=== PATIENT | male | born 1955 | race African-American/Black ===

== ENCOUNTER 2016-11-27 08:27 | Emergency (ER) | payer OTHER, MEDICAID ==
[~2016-11-27] VITALS: Ht 172.7 cm; Wt 80.0 kg
[~2016-11-27 08:27] MED LIST: ALLO100T PO; ATOR10TA69 PO; HYDR-4134 PO; LISI2.5T47 PO
[2016-11-27] MEDS ORDERED: SODIUM CHLORIDE 0.9% 1,000 ML IV ONE (09:10)
[2016-11-27 09:11] VITALS: BP 170/98
[2016-11-27 09:52] LABS: BASOPHILS % 0.7 % (0.0-2.0); EOSINOPHILS % 3.2 % (0.0-5.0); HEMATOCRIT. 40.9 % (42.0-52.0); LYMPHOCYTES % 16.6 % (20.0-50.0); MEAN CORPUSCULAR HEMOGLOBIN 29.7 pg (28.0-32.0); MEAN CORPUSCULAR VOLUME 86.9 fL (80.0-94.0); MEAN PLATELET VOLUME 8.3 fl (7.4-10.4); NEUTROPHILS % 72.5 % (40.0-76.0); PLATELET 222 x1000/uL (130-400); RED BLOOD CELL COUNT 4.71 mill/uL (4.7-6.1); RED CELL DISTRIBUTION WIDTH 13.1 % (11.6-14.6)
[2016-11-27 10:03] LABS: INR 1.1; PARTIAL THROMBOPLASTIN TIME 27.3 sec (23.4-31.0); PROTHROMBIN TIME 11.6 sec (9.4-11.6)
[2016-11-27 10:14] LABS: BETA HYDROXYBUTYRATE 0.4 mMol/L (0.0-0.3); CARBON DIOXIDE 22 mEq/L (21-32); CHLORIDE 108 mEq/L (98-107); TROPONIN I 0.06 ng/mL (0.00-0.04)
[2016-11-27] MEDS ORDERED: INSULIN REGULAR (HUMULIN R) 300UNITS/3ML IV ONE (10:30)
[2016-11-27] MEDS ORDERED: SODIUM CHLORIDE 0.9% 1,000 ML IV SCH (11:15)
[2016-11-27] MEDS ORDERED: DIPHENHYDRAMINE 50MG/ML VIAL IV PRN (11:15)
[2016-11-27] MEDS ORDERED: DEXTROSE 50% WATER 50ML SYRINGE IV PRN (11:15)
[2016-11-27] MEDS ORDERED: IPRATROPIUM/ALBUTEROL 0.5-3(2.5)MG/3ML NEB INH PRN ×2 (11:15)
[2016-11-27] MEDS ORDERED: ONDANSETRON HCL 4MG/2ML VIAL IV PRN (11:15)
[2016-11-27] MEDS ORDERED: LORAZEPAM 1MG TABLET PO PRN (11:15)
[2016-11-27] MEDS ORDERED: HYDROCODONE/ACETAMINOPHEN 5/325MG TABLET PO PRN (11:15)
[2016-11-27] MEDS ORDERED: HYDROCODONE/ACETAMINOPHEN 10/325MG TABLET PO PRN (11:15)
[2016-11-27] MEDS ORDERED: CLONIDINE 0.1MG TABLET PO PRN (11:15)
[2016-11-27] MEDS ORDERED: LISINOPRIL 5MG TABLET PO SCH (11:15)
[2016-11-27] MEDS ORDERED: BLOOD SUGAR DIAGNOSTIC STRIP TEST SCH (13:00)
[2016-11-27] MEDS ORDERED: INSULIN LISPRO 100 UNITS/ML SUBCUT SCH (13:20)
[2016-11-27] MEDS ORDERED: ATORVASTATIN CALCIUM 20MG TABLET PO SCH (21:00)
== END 2016-11-27 11:15 | disposition left against medical advice (07) ==
LOC: ER 08:36 → EDBEDREQ 10:33 → ENRESERV 10:39 → CANRESERV 10:39 → EDBEDREQ 10:39 → EDBEDREQTM 10:39 → CANBEDREQ 11:15 → ER 11:15
DX: I63.9 Cerebral infarction, unspecified (principal); E11.65 Type 2 diabetes mellitus with hyperglycemia; I10 Essential (primary) hypertension; Z86.73 Personal history of transient ischemic attack (TIA), and cerebral infarction without residual deficits
CPT/HCPCS: 36415; 70450; 71010; 80053; 82010; 83605; 83690; 83735; 83880; 84484; 85025; 85610; 85730; 87040; 93005; 96360; 99285; J7030; A4315